=== PATIENT | female | born 2000 | race Two or more races ===

== ENCOUNTER 2023-11-03 19:44 | Emergency (ER) | payer OTHER ==
[~2023-11-03] VITALS: Ht 152.4 cm; Wt 59.1 kg
[2023-11-03 20:58] LABS: APPEARANCE,URINE HAZY (CLEAR); BILIRUBIN,URINE NEGATIVE (NEGATIVE); COLOR,URINE YELLOW (YELLOW); GLUCOSE, URINE (UA) NEGATIVE (NEGATIVE); KETONES,URINE 40-60 mg/dL (NEGATIVE); LEUKOCYTE ESTERASE ,URINE LARGE (NEGATIVE); NITRATE,URINE NEGATIVE (NEGATIVE); OCCULT BLOOD,URINE TRACE (NEGATIVE); PH,URINE 5.5 (5.0-8.0); PROTEIN,URINE TRACE mg/dL (NEGATIVE); SPECIFIC GRAVITIY, URINE 1.035 (1.003-1.030); UROBILINOGEN,URINE <=1.0 mg/dL (<=1.0)
[2023-11-03 21:00] LABS: HCG,QUAL URINE NEGATIVE (NEGATIVE)
[2023-11-03 21:13] LABS: BACTERIA,URINE Few /HPF (None Seen); SQUAMOUS EPITHELIAL CELL,UR Few /LPF (None Seen)
[2023-11-03 21:14] LABS: WBC,URINE 26-50 /HPF (0-5)
[2023-11-03] MEDS: ACETAMINOPHEN 325 MG TABLET PO ONE (23:39)
[2023-11-04 00:42] VITALS: BP 121/68; PULSE 71; RESP 20; TEMP 97.3; O2SAT 100
== END 2023-11-04 00:58 | disposition home or self-care (01) ==
LOC: EMS 19:44
DX: S06.0X0A Concussion without loss of consciousness, initial encounter (principal); V00.131A Fall from skateboard, initial encounter; Y93.89 Activity, other specified; Y92.89 Other specified places as the place of occurrence of the external cause; Y99.8 Other external cause status
CPT/HCPCS: 81001; 84703; 87086; 87186; 99283

== ENCOUNTER 2024-09-13 22:41 | Emergency (ER) | payer OTHER ==
[~2024-09-13] VITALS: Ht 149.9 cm; Wt 56.0 kg
[2024-09-13 22:49] VITALS: TEMP 98.4
[2024-09-13] MEDS: METOCLOPRAMIDE HCL 10 MG TABLET PO ONE (23:26)
[2024-09-13] MEDS: KETOROLAC TROMETHAMINE 30 MG/ML VIAL IM ONE (23:26)
[2024-09-13] MEDS: ACETAMINOPHEN 325 MG TABLET PO ONE (23:26)
[2024-09-13] MEDS ORDERED: METO5TAB95 PO (23:50)
[2024-09-14 00:51] VITALS: BP 102/63; PULSE 72; RESP 14; O2SAT 98
== END 2024-09-14 00:52 | disposition home or self-care (01) ==
LOC: EMS 22:59
DX: G43.909 Migraine, unspecified, not intractable, without status migrainosus (principal)
CPT/HCPCS: 99284; 96372; J1885